=== PATIENT | female | born 1975 | race Caucasian/White ===

== ENCOUNTER 2016-12-15 14:21 | Emergency (ER) | payer MEDICAID, OTHER ==
[2016-12-15 14:22] VITALS: BMI 21.6
--- NOTE | 2016-12-15 16:26 | RAD ---
HISTORY: cough COMPARISON: Chest x-ray performed 12/08/15 TECHNIQUE: Chest PA and lateral FINDINGS: LUNGS: Biapical pleural thickening. No focal consolidation. Small nodular densities at the left lung base. PLEURA: No significant pleural effusion identified. No definite pneumothorax . CARDIOVASCULAR: The cardiomediastinal silhouette appears within normal limits of size. OSSEOUS STRUCTURES: Degenerative changes of the spine. VISUALIZED UPPER ABDOMEN: Unremarkable. OTHER FINDINGS: None. IMPRESSION: Biapical pleural thickening. Small nodular densities at the left lung base, nonspecific. No focal consolidation.
--- NOTE | 2016-12-15 16:43 | C.PDOC ---
History Of Present Illness A 41 year old female presents to the ED c/o cough for a week. Patient notes that the cough would produce a white sputum but was a dry cough. Patient also reports a fever of the first day during the onset of the chief complaint but it subsided the last several days. Patient then notes that she went to her PMD to get her medications refilled, but her PMD said she needs a CXR and needs to go to the ER. Patient denies N/V/D, chest pain, or any other complaints. Time Seen by Provider: 12/15/16 14:43 Chief Complaint (Nursing): Fever History Per: Patient History/Exam Limitations: no limitations Onset/Duration Of Symptoms: Days Current Symptoms Are (Timing): Still Present Associated Symptoms: Fever (For the 1st days), Cough, Sputum (white sputum). denies: Chills, Nausea, Vomiting, Diarrhea Severity: Mild Recent travel outside of the [place]: No Additional History Per: Patient Past Medical History Reviewed: Historical Data, Nursing Documentation, Vital Signs Vital Signs: Last Vital Signs Temp 98.1 F 12/15/16 16:50 Pulse 83 12/15/16 16:50 Resp 20 12/15/16 16:50 BP 108/72 12/15/16 16:50 Pulse Ox 97 12/20/16 18:39 - Medical History PMH: Anemia, Anxiety, Bipolar Disorder, Depression, Gastritis, HIV, Hypercholesterolemia, Hypothyroidism, Schizophrenia - [facility] Procedures COLONOSCOPY (12/24/14) INJECT/INFUSE NEC (07/01/14) Family History: States: Unknown Family Hx - Social History Hx Alcohol Use: No Hx Substance Use: No Review Of Systems Except As Marked, All Systems Reviewed And Found Negative. Constitutional: Positive for: Fever Respiratory: Positive for: Cough Gastrointestinal: Negative for: Nausea, Vomiting, Diarrhea Physical Exam - Physical Exam Appears: Non-toxic, No Acute Distress Skin: Warm, Dry Head: Atraumatic, Normacephalic Eye(s): bilateral: Normal Inspection Oral Mucosa: Moist Cardiovascular: Rhythm Regular, No Murmur Respiratory: Normal Breath Sounds, No Rales, No Rhonchi, No Wheezing Neurological/Psych: Oriented x3, Normal Speech, Normal Cognition ED Course And Treatment O2 Sat by Pulse Oximetry: 97 (Room air) Pulse Ox Interpretation: Normal - Radiology CXR: Interpreted by Me CXR Interpretation: Yes: No Acute Disease - Other Rad CXR X-Ray: Viewed By Me, Read By Radiologist Interpretation: HISTORY: cough. COMPARISON: Chest x-ray performed 12/08/15. TECHNIQUE: Chest PA and lateral. FINDINGS: LUNGS: Biapical pleural thickening. No focal consolidation. Small nodular densities at the left lung base. PLEURA: No significant pleural effusion identified. No definite pneumothorax . CARDIOVASCULAR: The cardiomediastinal silhouette appears within normal limits of size. OSSEOUS STRUCTURES: Degenerative changes of the spine. VISUALIZED UPPER ABDOMEN: Unremarkable. OTHER FINDINGS: None. IMPRESSION: Biapical pleural thickening. Small nodular densities at the left lung base, nonspecific. No focal consolidation. Medical Decision Making Medical Decision Making: Plans: -CXR unremarkable, no meds indicated at this time OTC cough meds and time This was explained to the pt Disposition - Disposition Referrals: Shannan Crump MD [Medical Doctor] - Disposition: HOME/ ROUTINE Disposition Time: 00:00 Condition: GOOD Instructions: Upper Respiratory Infection (ED) - Clinical Impression Clinical Impression: URI (upper respiratory infection) - Scribe Statement The provider has reviewed the documentation as recorded by the Scribe Chemo burger All medical record entries made by the Scribe were at my direction and personally dictated by me. I have reviewed the chart and agree that the record accurately reflects my personal performance of the history, physical exam, medical decision making, and the department course for this patient. I have also personally directed, reviewed, and agree with the discharge instructions and disposition.
[2016-12-15 16:51] VITALS: BP 108/72; PULSE 83; RESP 20; TEMP 98.1
[2016-12-15 16:54] VITALS: O2SAT 97
== END 2016-12-15 16:50 | disposition home or self-care (01) ==
LOC: C.ER 14:21 → MERGE 14:21 → C.ER 16:50
DX: J06.9 Acute upper respiratory infection, unspecified (principal)

== ENCOUNTER 2017-07-10 13:49 | Emergency (ER) | payer MEDICAID, OTHER ==
[2017-07-10 13:49] VITALS: BMI 21.6
[2017-07-10 14:04] VITALS: TEMP 98; O2SAT 99
--- NOTE | 2017-07-10 14:57 | C.PDOC ---
History Of Present Illness 41 year old female presents to the ED with complaints of draining abscess to buttocks, right ear pain, dizziness, and subjective chills since last night. Patient's girlfriend at bed side reports patient was shaking from the chills. Patient is already taking clindamycin for three days and denies chest pain, shortness of breath, headache, fever, weakness, numbness, or other complaints at this time. Time Seen by Provider: 07/10/17 14:16 Chief Complaint (Nursing): Abnormal Skin Integrity History Per: Patient, Other (girlfriend ) History/Exam Limitations: no limitations Onset/Duration Of Symptoms: Hrs (since last night ) Current Symptoms Are (Timing): Still Present Location Of Injury: Right: Buttock, Left: Buttock Quality Of Symptoms: Draining Recent travel outside of the [place]: No Past Medical History Reviewed: Historical Data, Nursing Documentation, Vital Signs Vital Signs: Last Vital Signs Temp 98 F 07/10/17 14:00 Pulse 66 07/10/17 15:40 Resp 17 07/10/17 15:40 BP 105/72 07/10/17 15:40 Pulse Ox 99 07/10/17 15:40 - Medical History PMH: Anemia, Anxiety, Bipolar Disorder, Depression, Gastritis, HIV, Hypercholesterolemia, Hypothyroidism, Schizophrenia Surgical History: Denies: Pacemaker - [facility] Procedures COLONOSCOPY (12/24/14) INJECT/INFUSE NEC (07/01/14) Family History: States: Unknown Family Hx - Social History Hx Alcohol Use: Yes Hx Substance Use: No - Immunization History Hx Influenza Vaccination: No Hx Pneumococcal Vaccination: No Review Of Systems Constitutional: Positive for: Chills (subjective chills). Negative for: Fever ENT: Positive for: Ear Pain Cardiovascular: Negative for: Chest Pain, Palpitations Respiratory: Negative for: Cough, Shortness of Breath Gastrointestinal: Negative for: Nausea, Vomiting, Abdominal Pain, Diarrhea Skin: Positive for: Other (draining abscess to buttocks ) Neurological: Positive for: Dizziness. Negative for: Headache Physical Exam - Physical Exam Appears: Non-toxic, No Acute Distress Skin: Warm, Dry, No Rash, Other (lesion to bilateral buttocks consistent with previously draining abscess. No current drainage. No fluctuance, no induration , and no surrounding cellulitis) Head: Atraumatic, Normacephalic, No Tenderness Eye(s): bilateral: Normal Inspection, PERRL, EOMI Ear(s): Left: Other (buldging and erythema to R TM), Right: Normal Nose: Normal, No Discharge Oral Mucosa: Moist Throat: Normal, No Erythema, No Exudate Neck: Normal ROM, Supple Chest: Symmetrical, No Deformity, No Tenderness Cardiovascular: Rhythm Regular Respiratory: No Rales, No Rhonchi, No Wheezing, Other (Clear to auscultation bilaterally ) Gastrointestinal/Abdominal: Soft, No Tenderness, No Distention, No Guarding, No Rebound Back: Normal Inspection, No CVA Tenderness Extremity: Normal ROM, No Tenderness Neurological/Psych: Oriented x3, Normal Speech, Normal Cognition, Normal Cranial Nerves, No Cerebellar Signs, Normal Motor, Normal Sensation, Other (no focal deficits) ED Course And Treatment O2 Sat by Pulse Oximetry: 99 (RA) Pulse Ox Interpretation: Normal Medical Decision Making Medical Decision Making: Patient is afebrile and well appearing. Already on clindamycin for previously draining abscess to b/l buttock. No concern for everette-rectal abscess due to superficial nature. Will dc on azithromycin for otitis media due to multiple allergies. Disposition - Disposition Disposition: HOME/ ROUTINE Disposition Time: 15:40 Condition: GOOD Additional Instructions: Follow-up with PMD within 2 days. Return to ED if condition worsens or symptoms persist. Take full course of clindamycin. Take zpack as directed. Prescriptions: Azithromycin 250 mg PO DAILY #6 tablet Instructions: Otitis Media (ED) Forms: [id number] [facility] ([place]) - Clinical Impression Clinical Impression: Otitis media - Scribe Statement The provider has reviewed the documentation as recorded by the Scribhyun Dixon All medical record entries made by the Dileepibhyun were at my direction and personally dictated by me. I have reviewed the chart and agree that the record accurately reflects my personal performance of the history, physical exam, medical decision making, and the department course for this patient. I have also personally directed, reviewed, and agree with the discharge instructions and disposition.
[2017-07-10 15:41] VITALS: BP 105/72; PULSE 66; RESP 17
== END 2017-07-10 16:06 | disposition home or self-care (01) ==
LOC: C.ER 13:49
DX: H66.91 Otitis media, unspecified, right ear (principal)

== ENCOUNTER 2018-03-29 13:10 | Emergency (ER) | payer MEDICAID, OTHER ==
[2018-03-29 13:23] VITALS: BMI 21.4
[2018-03-29 13:28] VITALS: BP 101/65; PULSE 82; RESP 18; TEMP 98.1; O2SAT 98
--- NOTE | 2018-03-29 13:47 | C.PDOC ---
History Of Present Illness 42 year old female with history of asthma, tobacco and alcohol us sent to ED by her PMD Dr. Shannan Crump for evaluation of her right ear. Patient reports she was celebrating her friend's birthday libertarian 5 days ago when her ear started itching and she felt "something was in there." Patient also states she hears her heartbeat in her ear. She had chills last night and woke up with clear liquid coming out of her ear. Denies head trauma, neck pain, bilateral ear pain. Time Seen by Provider: 03/29/18 13:29 Chief Complaint (Nursing): ENT Problem History Per: Patient History/Exam Limitations: None Onset/Duration Of Symptoms: Days Current Symptoms Are (Timing): Still Present Quality (Ear): Discharge (clear liquid), Other (pruritic) Past Medical History Reviewed: Historical Data, Nursing Documentation, Vital Signs Vital Signs: Last Vital Signs Temp 98.1 F 03/29/18 13:23 Pulse 82 03/29/18 13:23 Resp 18 03/29/18 13:23 BP 101/65 03/29/18 13:23 Pulse Ox 98 03/29/18 14:07 - Medical History PMH: Anemia, Anxiety, Bipolar Disorder, Depression, Gastritis, HIV, Hypercholesterolemia, Hypothyroidism, Schizophrenia Denies: Atrial Fibrillation, Cardia Arrhythmia, CHF, Diabetes, Hepatitis, HTN , Mitral Valve Prolapse, Chronic Kidney Disease, Seizures, Sexually Transmitted Disease Surgical History: No Surg Hx Denies: Pacemaker - [facility] Procedures COLONOSCOPY (12/24/14) INJECT/INFUSE NEC (07/01/14) Family History: States: No Known Family Hx - Social History Hx Alcohol Use: Yes Hx Substance Use: No - Immunization History Hx Tetanus Toxoid Vaccination: No Hx Influenza Vaccination: No Hx Pneumococcal Vaccination: No Review Of Systems Constitutional: Positive for: Chills (last night). Negative for: Fever ENT: Negative for: Ear Pain Musculoskeletal: Negative for: Neck Pain Neurological: Negative for: Weakness, Numbness Physical Exam - Physical Exam Appears: Non-toxic, No Acute Distress Skin: Warm, Dry Head: Atraumatic, Normacephalic Eye(s): bilateral: Normal Inspection Ear(s): Left: Normal, Right: Other (clear drainage, canal is erythematous and irritated. Perforated tympanic membrane.) Oral Mucosa: Moist Neck: Supple Chest: Symmetrical Cardiovascular: Rhythm Regular, No Murmur Respiratory: Normal Breath Sounds, No Rales, No Rhonchi, No Wheezing Gastrointestinal/Abdominal: Soft, No Tenderness Neurological/Psych: Oriented x3, Normal Speech Gait: Steady ED Course And Treatment O2 Sat by Pulse Oximetry: 98 (RA) Pulse Ox Interpretation: Normal Medical Decision Making Medical Decision Making: Impression: Perforated tympanic membrane. Plan: Patient was discharged with prescription of cipro and advised to follow up with Dr Pickering in 2 days. Disposition Counseled Patient/Family Regarding: Diagnosis, Need For Followup, Rx Given - Disposition Referrals: Papa Pickering MD [Staff Provider] - Disposition: HOME/ ROUTINE Disposition Time: 13:48 Condition: STABLE Additional Instructions: Please follow up with Dr. Pickering Prescriptions: Ciprofloxacin/Dexamethasone [Ciprodex 0.3%-0.1% 7.5 Ml] 1 drop AD TID #1 bottle Instructions: Ruptured Eardrum (DC) Forms: [facility] [employer] [facility] ([place]ian) - POA Present On Arrival: None - Clinical Impression Clinical Impression: Perforated tympanic membrane - Scribe Statement The provider has reviewed the documentation as recorded by the Jim Emmanuel Rigo Provider Attestation: All medical record entries made by the iJm were at my direction and personally dictated by me. I have reviewed the chart and agree that the record accurately reflects my personal performance of the history, physical exam, medical decision making, and the department course for this patient. I have also personally directed, reviewed, and agree with the discharge instructions and disposition.
== END 2018-03-29 13:59 | disposition home or self-care (01) ==
LOC: C.ER 13:10
DX: H72.91 Unspecified perforation of tympanic membrane, right ear (principal); E78.00 Pure hypercholesterolemia, unspecified; F20.9 Schizophrenia, unspecified; E03.9 Hypothyroidism, unspecified